=== PATIENT | male | born 1990 | race Caucasian/White ===

== ENCOUNTER → 2017-10-23 | Outpatient (CLI) | payer BC ==
[~2017-10-23] MED LIST: ADVIL,NUPRIN,M200 MG PO; BD ULTRA-FINE1 EAC1 MC; BD ULTRA-FINE1 EAC2 MC; BLOOD GLUCOSE1 EACH MC; COMFORT MC; FENOFIBRATE145 M1 PO; LEVEMIR100 UNIT/2 SC; NOVOLOG PE100 UNITS/ SC
== END | disposition home or self-care (01) ==
LOC: CDC 12:11
DX: S62.324A Displaced fracture of shaft of fourth metacarpal bone, right hand, initial encounter for closed fracture (principal)
CPT/HCPCS: 93000